=== PATIENT | male | born 1960 | race Caucasian/White ===

== ENCOUNTER → 2024-07-21 11:06 | Outpatient (CLI) | payer OTHER, SELFPAY ==
--- NOTE | 2024-07-21 11:15 | DI.MRI.S_ITS ---
PROCEDURE: MR KNEE LT WO CON INDICATIONS: Left knee pain TECHNIQUE: Noncontrast sagittal PD fast spin echo and T2 fast spin echo with fat saturation, sagittal 3-D FLASH with fat saturation; coronal T1 spin echo and PD fast spin echo with fat saturation, and axial PD fast spin echo with fat saturation through the knee. COMPARISON: None. FINDINGS: Image quality: Excellent. Menisci: In the medial meniscus, there is mild intrasubstance degeneration in the meniscus body with mild extrusion of the medial meniscus body, without tear. The lateral meniscus is unremarkable. Cruciate ligaments: The anterior and posterior cruciate ligaments appear intact. Medial structures: The medial collateral ligament appears intact. The posterior oblique ligament, semimembranosus tendon insertions, oblique popliteal ligament, and meniscocapsular junction appear intact. Visualized portions of the pes anserinus tendons appear normal. No abnormal bursal fluid. Lateral structures: The lateral collateral ligament, long and short heads of the biceps femoris tendon appear intact. The popliteus tendon appears normal; the popliteofibular ligament appears intact. The posterosuperior and anteroinferior popliteomeniscal fascicles appear intact. The arcuate and fabellofibular ligaments appear intact, on either side of the lateral inferior geniculate artery. Iliotibial band appears normal. Anterior structures: The quadriceps tendon is unremarkable. Mild tendinosis of the proximal patellar tendon. Trace deep infrapatellar bursitis. No Hoffa's fat pad edema. Alignment of the patellofemoral compartment is anatomic. The medial and the lateral patellofemoral ligaments are intact. Bones and cartilage: Multifocal high-grade chondral irregularity high-grade chondral fissuring of the patella. Chondromalacia in the lateral patellar facet. Full-thickness low signal chondral fissuring in the central trochlea. In the medial compartment, the cartilage is well maintained. In the lateral compartment, the cartilage is grossly well maintained as well. No acute fracture. Joint space: Trace knee effusion. Small popliteal cyst. No intra-articular body. Popliteal vasculature is unremarkable. IMPRESSION: 1. Mild tendinosis of the proximal patellar tendon. 2. Mild chondrosis of the patellofemoral compartment. 3. Small popliteal cyst. Dictated by: Chayito Osorio M.D. on 07/21/2024 at 13:45 Approved by: Chayito Osorio M.D. on 07/21/2024 at 13:56
--- NOTE | 2024-07-21 11:15 | DI.MRI.S_ITS ---
PROCEDURE: MR KNEE RT WO CON INDICATIONS: Right knee pain TECHNIQUE: Noncontrast sagittal PD fast spin echo and T2 fast spin echo with fat saturation, sagittal 3-D FLASH with fat saturation; coronal T1 spin echo and PD fast spin echo with fat saturation, and axial PD fast spin echo with fat saturation through the knee. COMPARISON: [facility], MR, MR KNEE LT WO CON, 07/21/2024, 11:24. FINDINGS: Image quality: Excellent. Menisci: In the medial meniscus, there is a small undersurface tear of the meniscus body (14/23). There is mild extrusion of the medial meniscus body. In the lateral meniscus, there is incomplete radial tear the posterior horn (11:9), and of the meniscus body. No extrusion of the lateral meniscus body. Cruciate ligaments: The anterior and posterior cruciate ligaments appear intact. Medial structures: The medial collateral ligament appears intact. The posterior oblique ligament, semimembranosus tendon insertions, oblique popliteal ligament, and meniscocapsular junction appear intact. Visualized portions of the pes anserinus tendons appear normal. No abnormal bursal fluid. Lateral structures: The lateral collateral ligament, long and short heads of the biceps femoris tendon appear intact. The popliteus tendon appears normal; the popliteofibular ligament appears intact. The posterosuperior and anteroinferior popliteomeniscal fascicles appear intact. The arcuate and fabellofibular ligaments appear intact, on either side of the lateral inferior geniculate artery. Iliotibial band appears normal. Anterior structures: Enthesophyte of the superficial, lateral aspect of the patella, with associated marrow edema (9:8), reactive. The quadriceps tendon is intact. Mild tendinosis of the proximal patellar tendon. Trace deep infrapatellar bursitis. Mild superolateral Hoffa's fat pad edema, raising concern for patellar maltracking. Mild prepatellar subcutaneous edema. The medial and the lateral patellofemoral ligaments are intact. Alignment of the patellofemoral compartment is anatomic. Bones and cartilage: There is multi focal high-grade chondral fissuring and high-grade chondral irregularity in the patella. There is full low signal, full-thickness chondral fissuring of the central trochlea. The cartilage of the medial and the lateral compartments are well maintained. Mild subchondral marrow edema in the posterior medial tibial plateau (11:26) favor reactive. Joint space: No significant knee effusion. Small popliteal cyst. Mild tendinosis of the distal semimembranosus. The popliteal vasculature is unremarkable. No intra-articular body. IMPRESSION: 1. Small undersurface tear of the medial meniscus. Incomplete radial tear of the lateral meniscus. 2. Enthesophyte of the superficial lateral patella with associated reactive marrow edema. 3. Mild tendinosis of the proximal patellar tendon. Findings concerning for patellar maltracking. 4. Mild, patellofemoral compartment predominant chondrosis. Dictated by: Chayito Osorio M.D. on 07/21/2024 at 13:56 Approved by: Chayito Osorio M.D. on 07/21/2024 at 14:12
== END ==
PROVIDERS: Referring Provider Orthopaedic Surgery Foot and Ankle Surgery; Visit Provider Orthopaedic Surgery Foot and Ankle Surgery
DX: S83.241A Other tear of medial meniscus, current injury, right knee, initial encounter (principal); M23.91 Unspecified internal derangement of right knee; M23.92 Unspecified internal derangement of left knee; M22.41 Chondromalacia patellae, right knee; M22.42 Chondromalacia patellae, left knee; M71.21 Synovial cyst of popliteal space [Baker], right knee; M71.22 Synovial cyst of popliteal space [Baker], left knee
CPT/HCPCS: 73721